=== PATIENT | female | born 1990 | race African-American/Black ===

== ENCOUNTER 2020-03-21 11:17 | Emergency (ER) | payer MEDICAID ==
[~2020-03-21] VITALS: Ht 157.5 cm; Wt 56.8 kg
[2020-03-21 11:29] VITALS: BP 120/57; Ht 157.5 cm; Wt 56.8 kg
== END 2020-03-21 13:14 | disposition home or self-care (01) ==
LOC: D.ER 11:17
DX: R07.81 Pleurodynia (principal)